=== PATIENT | female | born 1950 | race Caucasian/White ===

== ENCOUNTER 2025-01-07 11:19 | Outpatient (CLI) | payer MEDICARE, OTHER ==
[~2025-01-07 11:19] MED LIST: barium sulfate 340gm for oral suspension 1 BOTTLE SUSP.RECON PO ONE
--- NOTE | 2025-01-07 18:02 | RADIOLOGY REPORT ---
EXAM: ESOPHAGRAM HISTORY: GASTRO-ESOPHAGEAL REFLUX DISEASE WITHOUT ESOPHAGITIS FLUORO TIME: 1.8 minutes. AIR KERMA: 74 mGy TECHNIQUE: The patient was positioned upright at the fluoroscopy unit and instructed to swallow thin barium contrast material under fluoroscopic examination. FINDINGS: Normal swallow reflex. No aspiration. There is a somewhat patulous esophagus without evidence of stricture. There is a small reducible axial hiatal hernia. Combined with this there is a paraesophageal hernia component. There are no abnormal tertiary contractions. No mucosal ulcerations seen throughout the esophagus. Mild gastroesophageal reflux was noted while the patient was in prone position. The gastric mucosal pattern is unremarkable. The duodenal bulb is distensible. The proximal duodenal sweep mucosal pattern is unremarkable. IMPRESSION: 1. 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 2. Mild gastroesophageal reflux.
== END 2025-01-07 23:59 | disposition home or self-care (01) ==
LOC: RAD 11:19
PROVIDERS: ATTEND Surgery
DX: K44.9 Diaphragmatic hernia without obstruction or gangrene (principal); K21.9 Gastro-esophageal reflux disease without esophagitis
CPT/HCPCS: 74220

== ENCOUNTER 2025-04-27 05:23 | Observation (INO) | payer MEDICARE, OTHER ==
[2025-04-20 14:22] LABS: MEAN PLATELET VOLUME 8.2 FL (7.4-10.4); PRE OP HEMATOCRIT 36.4 % (35.0-45.0); PRE OP HEMOGLOBIN 12.3 g/dL (12.0-16.0); PRE OP PLATELET COUNT 212 X10'3 (140-440); PRE OP WHITE BLOOD COUNT 6.3 10'3 (4.8-10.8); RED CELL DISTRIBUTION WIDTH 13.8 % (11.5-14.5)
[2025-04-20 14:38] LABS: CREATININE 0.96 MG/DL (0.40-0.90); PRE OP ALT 26 U/L (30-65); PRE OP ANION GAP 6 (8-16); PRE OP AST 27 U/L (10-37); PRE OP BILIRUB, TOTAL 0.4 MG/DL (0.0-1.0); PRE OP GLUCOSE 111 MG/DL (70-104); PRE OP POTASSIUM 4.1 MMOL/L (3.4-5.1); PRE OP SODIUM 138 MMOL/L (135-145); TOTAL CARBON DIOXIDE 28.9 MMOL/L (24-32); eGFR 57 ML/MIN
--- NOTE | 2025-04-21 07:35 | ELECTROCARDIOGRAPH REPORT ---
[facility] [place] Test Date: 2025-04-20 Test Time: 14:19:50 Pat Name: MEHDI ESPINO Department: [facility]- Patient ID: [id number] Room: Gender: F Digital Director: MARY ALICE : 1950 Requested By: JUDD SEGUNDO Order Number: [id number] Reading MD: Dr. Feroz Jennings Measurements Intervals [place] Rate: 63 P: 48 NV: 154 QRS: 65 QRSD: 83 T: 65 QT: 455 QTc: 466 Interpretive Statements Sinus rhythm Electronically Signed On 04-21-2025 13:24:[address] Feroz Jennings Please click the below link to view image of tracing.
[~2025-04-27] VITALS: Ht 165.1 cm; Wt 61.2 kg
[2025-04-27] VITALS (20 sets, daily range): BP systolic 120–163; BP diastolic 64–83; PULSE 58–96; RESP 10–19; TEMP 97.5–98.4; O2SAT 93–100
[~2025-04-27 05:23] MED LIST changes: +[UNRECOGNIZED DRUG - CODE] PO; -barium sulfate 340gm for oral suspension 1 BOTTLE SUSP.RECON PO ONE
[2025-04-27] MEDS: ringers solution, lacted 1,000 ML IV SCH ×2 (06:00→10:45)
[2025-04-27] MEDS: ceFAZolin 2gm/dext,iso 50mL 50 ML IV ONE (06:18)
[2025-04-27] MEDS ORDERED: LIDOcaine 1% 30ml preserv. free vial ONE (07:04)
[2025-04-27] MEDS ORDERED: BUPIVAcaine 2.5mg/ml inj 50ml vial (contains preservative) ONE (07:04)
[2025-04-27] MEDS ORDERED: midazolam 1 mg/ML 2ml injection ONE (07:20)
[2025-04-27] MEDS ORDERED: fentaNYL/PF 50MCG/1 ML 2ML syringe ONE (07:20)
[2025-04-27] MEDS ORDERED: propofol inj 20 ML IV ONE (07:22)
[2025-04-27] MEDS ORDERED: glycopyrrolate 0.2mg/ml inj ONE (07:22)
[2025-04-27] MEDS ORDERED: ondansetron/PF 4mg/2ml inj ONE (07:22)
[2025-04-27] MEDS ORDERED: acetaminophen 1,000mg/100ml IV 0 ML IV ONE (07:22)
[2025-04-27] MEDS ORDERED: rocuronium 10mg/ml inj IV ONE ×2 (07:22→08:21)
[2025-04-27] MEDS ORDERED: LIDOcaine 2% (20mg/ml) 5ml vial ONE (07:22)
[2025-04-27] MEDS ORDERED: dexamethasone sod phosphate 4mg/ml inj. ONE (07:22)
[2025-04-27] MEDS ORDERED: acetaminophen 1,000mg/100ml IV 100 ML IV ONE (07:24)
[2025-04-27] MEDS ORDERED: labetalol 20mg/4ml (5mg/ml) syringe IV PRN (07:30)
[2025-04-27] MEDS ORDERED: fentaNYL/PF 50MCG/1 ML 2ML syringe IV PRN (07:30)
[2025-04-27] MEDS ORDERED: hydrALAZINE 20mg/ml inj. IV PRN (07:30)
--- NOTE | 2025-04-27 07:49 | HISTORY AND PHYSICAL ---
History & Physical Providers to CC CC: JUDD SEGUNDO MD ~ History of Present Illness Reason for Admit\Complaint: Paraesophageal hernia History of Present Illness Interval history and physical exam Patient was last seen in November and confirmed to have a symptomatic paraesophageal hernia. She underwent esophagram that showed intact esophageal motility with no physiologic or mechanical obstruction Esophagram also demonstrated axial hiatal hernia with some reflux She has both heartburn symptoms as well as LPR symptoms with phlegm production She is scheduled today for robotic assisted, laparoscopic mesh repair of her paraesophageal hernia She denies any change in her past medical history since she was seen in my office (please see previous history and physical exam for all pertinent details Allergies: Coded Allergies: No Known Allergies (Unverified , 04/26/25) Home Medications Home Medications Active Reported Methyl B-12 (Mecobalamin) 2,500 Mcg Tab.chew 1 Tab PO DAILY ROS ROS Reviewed and negative with the exception of those found in the history of present illness Exam Vitals: Vital Signs Date Time Temp Pulse Resp B/P (MAP) Pulse Ox O2 Delivery O2 Flow Rate FiO2 04/27/25 05:40 98.2 69 16 142/81 (101) 99 04/27/25 05:40 Room Air General: 74-year-old female in no acute distress Chest: Lungs clear to auscultation bilaterally Cardiovascular: Regular rate and rhythm without murmurs Abdomen: Soft and nondistended Problems: (1) Paraesophageal hernia Assessment & Plan: The risks, benefits, and alternatives to robotic assisted, laparoscopic paraesophageal hernia repair with mesh were discussed with the patient and her . Risks include, but are not limited to, bleeding, infection, injury to intra-abdominal structures, hernia recurrence and persistent LPR symptoms. Patient verbalized understanding and we will proceed to the operating room as planned today. JUDD SEGUNDO MD Apr 27, 2025 07:49
[2025-04-27] MEDS ORDERED: ePHEDrine 50MG/ML INJ. ONE (08:15)
[2025-04-27] MEDS ORDERED: PCA WASTE DOCUMENTATION 1 MG ML MC SCH (10:15)
[2025-04-27] MEDS: morphine 4 MG/ML inj SYRINge IV PRN (10:25)
--- NOTE | 2025-04-27 10:30 | OPERATIVE REPORT ---
Operative Report Providers to CC CC: BRIAN SEGUNDO MD ~ Date of Procedure: Apr 27, 2025 Pre-Operative Diagnosis: Paraesophageal hernia Post-Operative Diagnosis SAME as PRE-Op Procedure Performed Robotic assisted, laparoscopic paraesophageal hernia repair with mesh Surgeon: Brian Segundo MD FACS [employer] None Anesthesiologist: Cayden Arnold Type of Anesthesia: General Findings: Type 1 paraesophageal (sliding hiatal) hernia Wound class I Complications None Prosthetics\Implants used: Phasix mesh Estimated Blood Loss: Minimal Specimen Removed: None Description of Procedure: Patient was brought to the operating room and identified by the nursing staff and the attending physician. Patient was placed supine and general anesthesia was induced. Preoperative antibiotics were given. Valles catheter was placed. The abdomen was prepped and draped in the standard sterile fashion. At Armstrong's point, Veress needle technique was used through a stab incision to access and insufflate the abdomen. This was accomplished without incident. An optical, 12 mm trocar was used to gain access to the abdomen in the left upper quadrant under laparoscopic visualization. Additional 8.5 mm robotic trochars were placed under laparoscopic visualization in the left lateral upper abdomen, left epigastrium and right upper quadrant. Patient was placed in steep, reverse Trendelenburg position. The [employer] Maria Elena robotic arm was docked to the patient and instruments guided into the abdomen under laparoscopic visualization. The left lobe of the liver was lifted and the hiatus inspected. Moderate-sized sliding type hiatal defect was noted. An 18 inch, 0, V-Loc suture was used to sling the left lobe of the liver up to the anterior abdominal wall. With the stomach retracted towards the patient's left upper quadrant, dissection was initiated along the pars flaccida and the lesser sac was entered. The lesser omentum was divided up to the right todd. There was not a replaced left hepatic artery. Dissection was carried in to the mediastinum. The mediastinal space was entered. Dissection was then carried posteriorly along the right todd, taking care to leave peritoneum overlying the muscles. Once the posterior decussation was encountered, attention was then turned to the short gastric vessels. Stomach was retracted toward the patient's right and the short gastric vessels were placed on tension. The short gastric vessels were divided along the upper portion of the greater curvature, up to the phrenoesophageal ligament which was also then divided. The peritoneal ref lection of the left todd was opened and dissection carried up until the apex of the crura was reached. Dissection was carried up into the mediastinum, mobilizing the esophagus from the retrocardiac space and taking care not to injure the bilateral pleura. The entire hernia sac which was really quite smallin size, was mobilized out of the mediastinum and reduced into the abdomen. Excess sac was dissected at the level of the gastroesophageal fat pad and set aside. The retroesophageal space was developed. The GE junction was retracted anteriorly and the mediastinal dissection was carried out posterior to the esophagus. Dissection continued until at least 3-4 cm of intra-abdominal esophagus was obtained without any retraction on the stomach. With the stomach retracted anteriorly, adequate space and visualization was obtained to allow for the crural repair. Strips of bioabsorbable, Phasix mesh were used to reinforce the crural repair. A strip of mesh was placed over each crura and used for reapproximation without tension. Attention was then turned to the gastropexy. Fundus was anchored to the upper left portion of the hiatus with full-thickness crural sutures. The suture was then run along the greater curvature creating a gastropexy to the anterior ab dominal wall. Care was taken to stay medial to the phrenic nerve and vascular bundle. About a fourth of the gastric fundus was anchored to the anterior abdominal wall. Attention was then turned to the modified Hill procedure/augmentation stitch. The angle of His was then recreated with a running, 2/0, long-absorbable, V-Loc suture. This was run between the fundus and the lateral border of the intra-abdominal esophagus. This suture was run up to the level of the left todd. Gastropexy was then completed by running the midportion of the gastric fundus towards the initial gastropexy suture and anchoring the 2 together. [place] and sutures were retrieved. The da Maria Elena robotic arm was undocked from the patient. The 12 mm port was removed and the fascial defect closed percutaneously with 0 Vicryl suture. Remaining ports were removed and the abdomen was allowed to deflate. Skin was closed at all sites with 4-0 Monocryl sutures and dressed with Dermabond. Patient was extubated and transferred to the postanesthesia care unit in stable condition. Counts repoted as correct: Yes BRIAN SEGUNDO MD Apr 27, 2025 10:29
[2025-04-27] MEDS: fentaNYL/PF 50MCG/1 ML 2ML syringe IV PRN (10:31)
[2025-04-27] MEDS: ondansetron/PF 4mg/2ml inj IV PRN ×2 (11:14→13:47)
--- NOTE | 2025-04-27 11:43 | RADIOLOGY REPORT ---
EXAM: DI CHEST,SINGLE VIEW Indication: POST OP Technique: Single frontal view of the chest was obtained Comparison: None FINDINGS: Lines and Tubes: None Lungs: No focal consolidation. Pleura: No effusion. No pneumothorax. Cardiomediastinal contours: Unremarkable. Linear lucency underneath the diaphragm may represent small bowel loops versus pneumoperitoneum subcutaneous gas is visualized in the bilateral neck. Bones: No acute osseous abnormality. IMPRESSION: Linear lucency underneath the diaphragm may represent small bowel loops/ stomach versus pneumoperitoneum. Subcutaneous gas is visualized in the bilateral neck. Correlate with surgical history.
[2025-04-27] MEDS: oxyCODONE/APAP 5-325mg tablet PO PRN (12:34)
[2025-04-28 01:38] VITALS: BP 140/65; PULSE 66; RESP 16; TEMP 97.9; O2SAT 98
[2025-04-28 06:00] VITALS: BP 108/69; PULSE 65; RESP 16; TEMP 97.8; O2SAT 96
[2025-04-28 08:00] VITALS: RESP 16; O2SAT 96
[2025-04-28] MEDS: enoxaparin 40mg/0.4ml syringe SQ SCH (09:34)
[2025-04-28] MEDS ORDERED: PER5325T PO (12:56)
--- NOTE | 2025-04-28 12:58 | DISCHARGE SUMMARY ---
Discharge Summary Providers to CC CC: BRIAN SEGUNDO MD ~ Discharge Summary Admission Diagnosis: Paraesophageal hernia Hospital Course DATE OF ADMISSION: 04/27/25 DATE OF DISCHARGE: 04/28/25 Discharge Diagnosis\Comment: Paraesophageal hernia Operations\Procedures: Robotic assisted laparoscopic paraesophageal hernia repair with mesh Consultants: Brian Segundo MD Complications: None Condition on DC: Stable New Medications: Oxycodone Hcl/Acetaminophen 5/325 MG* (Percocet 5/325 MG*) 5 Mg/325 Mg Tablet 1 TAB PO Q4H PRN for moderate or severe pain 4-10 for 5 Days, #30 TAB Continued Medications: Mecobalamin (Methyl B-12) 2,500 Mcg Tab.chew 1 TAB PO DAILY Discharge Summary: Admitted for routine postoperative care. No issues other than a little bit of nausea. D/c on POD #1 *Problems/Diagnosis: (1) Paraesophageal hernia Status: Chronic Total Time Spent on D/C: Up to 30 Minutes Counseling Services Smoking & Tobacco Cessation: N/A BRIAN SEGUNDO MD Apr 28, 2025 12:58
== END 2025-04-28 13:49 | disposition home or self-care (01) ==
LOC: PAS 05:23 → PAS IN 10:21 → SUR 3N 11:20
PROVIDERS: ADMIT Surgery; ATTEND Surgery
DX: K44.9 Diaphragmatic hernia without obstruction or gangrene (principal); K21.9 Gastro-esophageal reflux disease without esophagitis; R11.0 Nausea; Z79.899 Other long term (current) drug therapy; Z98.890 Other specified postprocedural states
CPT/HCPCS: 36415; 43282; 71045; 80053; 82948; 85025; 87081; 93005; 96372; 96374; 96375; 96376; C1781; G0378; J0131; J1100; J1650; J2003; J2250; J2270; J2405; J2704; J2710; J3010; J3490; J7120; A4618